=== PATIENT | male | born 1990 | race African-American/Black ===

== ENCOUNTER 2020-06-01 21:27 | Inpatient (IN) | payer OTHER, SELFPAY ==
[~2020-06-01] VITALS: Ht 175.3 cm; Wt 74.8 kg
[2020-06-01 21:29] VITALS: BP 142/90
[2020-06-01 21:32] VITALS: BP 135/69
--- NOTE | 2020-06-01 21:35 | NUR ---
TO LOBBY AMBULATORY
--- NOTE | 2020-06-01 22:12 | NUR ---
Pt ambulated to ER Bed # 12 w/ steady gait.
--- NOTE | 2020-06-01 22:15 | NUR ---
29 YR OLD MALE FOUND IN SEMI-FOWLERS IN BED. PT IS AOX4. PT STATES ABD PAIN 10/10 WITH NAUSEA AND STATED VOMITED BLOOD BEFORE ARRIVAL. PT STATES DIZZINESS AND SLIGHT BLURRY VISION. PT STATED INHALING ("HUFFING") AN AEROSOL CALLED "NEXT" PRIOR TO EMS ARRIVAL. PT DENIES OTHER DRUG AND ALCOHOL USE. ABD IS FLAT AND SOFT AND NORMAL BOWEL SOUNDS HEARD IN ALL QUADRANTS. LUNG SOUNDS CLEAR BILATERALLY. EQUAL RISE AND FALL UPON RESPIRATIONS. PT HAS SLIGHT ABRASION TO FOREHEAD. PT DENIES OTHER MEDICAL COMPLAINTS. BED LOCKED IN LOWEST POSITION WITH 2 SIDE RAILS UP FOR SAFETY AND CALL LIGHT WITHIN REACH. WILL CONTINUE TO MONITOR. HISTORY- NONE ALLERGIES- NONE
--- NOTE | 2020-06-01 22:22 | NUR ---
SCRIBING MACHINE OPERATOR AT BEDSIDE.
--- NOTE | 2020-06-01 22:30 | NUR ---
EKG PERFORMED AT BEDSIDE. EKG READS SINUS RHYTHM @ 96
--- NOTE | 2020-06-01 22:41 | NUR ---
Pt c/o of nausea and has had x2 episodes of vomitting. ERMD made aware.
[2020-06-01] MEDS ORDERED: ONDANSETRON 4 MG/2 ML VIAL IVP ONE (22:45)
[2020-06-01 22:48] LABS: BASOPHILS % (AUTO) 0.2 % (0.0-2.0); HEMATOCRIT 42.8 % (36-52); HEMOGLOBIN 14.8 g/dL (12.0-18.0); LYMPHOCYTES # (AUTO) 0.4 K/uL (2.0-11.5); LYMPHOCYTES % (AUTO) 2.1 % (20.5-51.1); MEAN CORPUSCULAR HEMOGLOBIN 31 pg (27-31); MEAN CORPUSCULAR HGB CONC 35 g/dL (33-37); MEAN CORPUSCULAR VOLUME 89.1 fL (80-94); MONOCYTES # (AUTO) 0.5 K/uL (0.8-1.0); MONOCYTES % (AUTO) 2.8 % (1.7-9.3); NEUTROPHILS # (AUTO) 16.1 K/uL (1.8-7.7); NEUTROPHILS % (AUTO) 94.9 % (42.2-75.2); PLATELET COUNT (AUTO) 325 K/uL (140-450); RED BLOOD CELL COUNT(AUTO) 4.81 MIL/uL (4.20-6.10); RED CELL DISTRIBUTION WIDTH 13.4 % (11.6-13.7)
--- NOTE | 2020-06-01 22:56 | NUR ---
PT TAKEN TO CT
[2020-06-01 23:07] LABS: ALBUMIN 4.8 g/dL (3.4-5.0); ANION GAP 21.5 (8-16); ASPARTATE AMINOTRANSFERASE 42 U/L (15-37); CARBON DIOXIDE 19.5 mmol/L (21-32); CHLORIDE 99 mmol/L (98-107); CREATININE 1.8 mg/dL (0.6-1.3); GFR ARICAN-AMERICAN 58 mL/min (>90); GLUCOSE 140 mg/dL (74-106); SODIUM SERUM 136 mmol/L (136-145); TOTAL BILIRUBIN 0.6 mg/dL (0.0-1.0); UREA NITROGEN, BLOOD 32 mg/dL (7-18)
--- NOTE | 2020-06-01 23:11 | NUR ---
PT RETURN FROM CT
[2020-06-01 23:12] LABS: SALICYLATE < 2.8 mg/dL (2.8-20.0)
[2020-06-01 23:13] LABS: ACETAMINOPHEN < 0.5 ug/ml (10-30)
--- NOTE | 2020-06-01 23:15 | NUR ---
ERMD AT BEDSIDE FOR MEDICAL EVALUATION.
[2020-06-01] MEDS ORDERED: NACL 0.9% 1,000 ML IV ONE (23:20)
[2020-06-01] MEDS ORDERED: PANTOPRAZOLE 40 MG INJ VIAL IVP ONE (23:25)
--- NOTE | 2020-06-01 23:28 | NUR ---
urine sample collected and handed to lab.
[2020-06-01 23:45] LABS: APPEARANCE,URINE CLEAR (CLEAR); BILIRUBIN,URINE NEGATIVE (NEGATIVE); BLOOD, URINE 2+ (NEGATIVE); COLOR,URINE YELLOW (YELLOW); LEUKOCYTE ESTERASE ,URINE TRACE (NEGATIVE); NITRITE, URINE NEGATIVE (NEGATIVE); PH,URINE 5.5 (5.0-9.0); UGLUCOSE NEGATIVE (NEGATIVE)
[2020-06-01 23:54] LABS: RBC,URINE 0-5 /HPF (0-5)
[2020-06-01 23:55] LABS: WBC,URINE 16-25 (MOD) /HPF (0-5)
[2020-06-01 23:57] LABS: BARBITURATE, URINE NEGATIVE ng/ml (NEG <=200); BENZODIAZEPINE, URINE NEGATIVE ng/mL (NEG <=200); CANNABINOID, URINE POSITIVE ng/mL (NEG <=50); COCAINE, URINE NEGATIVE ng/mL (NEG <=300); OPIATE, URINE NEGATIVE ng/mL (NEG <=2000); PHENCYCLIDINE SCREEN,URINE NEGATIVE ng/mL (NEG <=25)
[2020-06-02] MEDS ORDERED: LORazepam 2 MG/ML VIAL IVP ONE
[2020-06-02] MEDS ORDERED: ENOXAPARIN 40 MG/0.4 ML SYR SUBQ ONE
[2020-06-02] MEDS ORDERED: LEVOFLOXACIN 500 MG/D5W PREMIX 100 ML IV ONE (00:05)
--- NOTE | 2020-06-02 00:15 | NUR ---
ALISE SWAB COLLECTED AND WALKED TO LAB.
--- NOTE | 2020-06-02 00:15 | NUR ---
SHIRAZ ALISE SWAB COLLECTED AND WALKED TO LAB.
--- NOTE | 2020-06-02 00:16 | NUR ---
EKG PERFORMED AT BEDSIDE. EKG READS SINUS RHYTHM @ 90
--- NOTE | 2020-06-02 00:31 | NUR ---
JAMES MADE AWARE OF PT CURRENT BP 53/26.
--- NOTE | 2020-06-02 00:33 | NUR ---
PER JAMES AGEE , ADMINISTER NS 1L BOLUS FOR HYPOTENSION AT THIS TIME.
[2020-06-02] MEDS ORDERED: ACETAMINOPHEN 325 MG TAB PO PRN (00:35)
[2020-06-02] MEDS ORDERED: MAGNESIUM OXIDE 400 MG TAB PO PRN (00:35)
[2020-06-02] MEDS ORDERED: NACL 0.9% 1,000 ML IV ONE (00:35)
[2020-06-02] MEDS ORDERED: POTASSIUM CHLORIDE 10 MEQ TABER PO PRN (00:35)
[2020-06-02] MEDS ORDERED: KCL 20 MEQ/WATER INJ PREMIX 200 ML IV PRN (00:35)
[2020-06-02] MEDS ORDERED: MAG SULF 2000 MG/WATER PREMIX 50 ML IV PRN (00:35)
--- NOTE | 2020-06-02 00:40 | NUR ---
PULLED 3ML BLOOD FROM 18G IV FOR PT/PTT LAB COLLECTION.
[2020-06-02] MEDS ORDERED: LORazepam 2 MG/ML VIAL IVP PRN (00:45)
[2020-06-02 01:03] LABS: PROTHROMBIN TIME 11.9 secs (10.8-13.4)
--- NOTE | 2020-06-02 01:11 | NUR ---
Patient will be admitted to care of DR GARCIAS. Admited to TELEMETRY. Will go to room 102B. Belongings list completed. Report to [facility].
--- NOTE | 2020-06-02 01:11 | NUR ---
CALL [facility] FOR REPORT FOR PT TO BE ADMITTED TO THE FLOOR.
--- NOTE | 2020-06-02 01:49 | NUR ---
[facility] RECEIVING NURSE [facility] AT BEDSIDE.
[2020-06-02] MEDS: NACL 0.9% 1,000 ML IV SCH ×2 (02:00→13:05)
[2020-06-02 04:00] VITALS: BP 136/80
[2020-06-02 06:12] LABS: ALBUMIN 3.6 g/dL (3.4-5.0); ANION GAP 16.8 (8-16); CARBON DIOXIDE 21.2 mmol/L (21-32); CREATININE 1.5 mg/dL (0.6-1.3); MAGNESIUM 2.3 mg/dL (1.8-2.4); TOTAL BILIRUBIN 0.4 mg/dL (0.0-1.0)
--- NOTE | 2020-06-02 07:25 | NUR ---
RECEIVED OM SEARCH CONSULTANT NURSE, PT IS AWAKE AND LYING ONT HE BED WITH SIDE RAILS UP AND CALL LIGHT WITHIN REACH, IV LINES NOTED ON THE LEFT UA G. 18 ON SALINE LOCK AND ON THE RFA G. 22 WITH IVF NS INFUSING AT 80ML/HR, INTACT, PT IS ON ROOM AIR AND AOX4 AND NO SIGN OF DISTRESS NOTED, WILL CONTINUE TO MONITOR PT.
--- NOTE | 2020-06-02 07:30 | NUR ---
CLOTH BRUSHING AND SUEDING SUPERVISOR CALLED AND REPORTED CRITICAL TROPONIN LEVEL OF 0.288, WILL INFORM .
[2020-06-02 08:00] VITALS: BP 120/69
--- NOTE | 2020-06-02 08:53 | NUR ---
PATIENT HAS BEEN SCREENED AND CATEGORIZED LOW NUTRITION RISK. PATIENT WILL BE SEEN WITHIN 7 DAYS OF ADMISSION. 06/08/[address]
[2020-06-02] MEDS: ENOXAPARIN 40 MG/0.4 ML SYR SUBQ SCH (09:09)
[2020-06-02] MEDS: ONDANSETRON 4 MG/2 ML VIAL IVP PRN ×3 (09:11→19:46)
--- NOTE | 2020-06-02 09:11 | NUR ---
PT WAS GIVEN THE SCHEDULED AM MEDICATION INCLUDING AN ANTI NAUSEA MED, PARAMETER CHECKED AND WILL MONITOR PT.
[2020-06-02 12:00] VITALS: BP 131/68
--- NOTE | 2020-06-02 12:40 | NUR ---
PT IS RESTING ON THE BED NOW, NO SIGN OF DISTRESS NOTED.
--- NOTE | 2020-06-02 12:55 | NUR ---
SOCIAL WORK NOTE: Patient's Orientation Person Situation Place Time Information Provided By PATIENT Comments SW MET WITH PATIENT AT BEDSIDE TO COMPLETE ASSESSMENT. Real Estate Utilization Officer, Realtionship and Phone Number N/A Healthcare Power of Lime Sludge Mixer No Does Patient Have a POLST No Identifying Problems No Social Work Triggers Is A Social Work Consult Needed No Mandate Report Filed No Explanation Of Identifying Problems PATIENT IS A 29-YEAR-OLD MALE ADMITTED FOR ABNORMAL TROPONIN. PATIENT HAS NO REPORTED PMHX. PATIENT STATED THAT HE USES SUBSTANCE ABUSE (AEROSOL CAN). PATIENT ACCEPTED SUBSTANCE ABUSE RESOURCES. Admitted From Home Pre-Admission Level Of Functioning Status Independent/Ambulatory Prior Resources/Services Used In Last 12 Months No Prior Resources Used Prior DME No Prior DME Used Dialysis Comments N/A Living Situation Lives With Family Lives Alone Patient Had Caregiver No Home Support No Caregiver Issues Financial Issues No Known Financial Issue Referral To The Financial Counselor Needed No Factors/Needs No D/C Needs Identified Drug/Alcohol Treatment Pt/Rep Participated In Discharge Plan Yes Patient/Family Agress With Discharge Plan Yes Discharge Plan Comments TENTATIVE DISCHARGE PLAN IS FOR PATIENT TO RETURN HOME. DC Plan Status Initiated
--- NOTE | 2020-06-02 13:42 | NUR ---
DISCHARGE PLANNING: THIS IS A 29 Y/O MALE PATIENT FROM HOME, WHO CAME IN DUE TO VOMITING BLOOD AND STOMACH PAIN. NO SIGNIFICANT HISTORY. INITIAL DIAGNOSIS OF ABNORMAL TROPONIN, ACUTE KIDNEY INFECTION AND SUBSTANCE ABUSE. CURRENT LABS INCLUDE WBC 17.0, H/H 14.8/42.8, NA/K 135/4.0, BUN/CREA 28/1.5, TROP 0.288. UDS POSITIVE FOR CANNABINOIDS. RAPID COVID TEST NEGATIVE. ON LOVENOX. HEAD CT NORMAL. CXR NEGATIVE. CARDIO CONSULT IN PLACE. ON ROOM AIR, O2 SAT 100%. DC PLAN BACK TO HOME ONCE STABLE.
--- NOTE | 2020-06-02 14:25 | NUR ---
PT WAS GIVEN ANTI -NAUSEA MEDICATION. WILL MONITOR PT.
--- NOTE | 2020-06-02 14:28 | NUR ---
FEDERAL JAVA DEVELOPER ARIS CALLED AND INFORMED THE PT'S CRITICAL TROPONIN OF 0.198, WILL INFORM .
[2020-06-02 16:00] VITALS: BP 116/74
--- NOTE | 2020-06-02 19:25 | NUR ---
ED PT TO [facility] SHIFT NURSE, GLENDA, FOR CONTINUITY OF CARE.
--- NOTE | 2020-06-02 19:30 | NUR ---
RECEIVED BEDSIDE REPORT FROM DAY SHIFT NURSE. PATIENT IS AWAKE, ALERT, AND COOPERATIVE. RESPIRATION EVEN UNLABORED ON ROOM AIR. NO DISTRESS NOTED. SKIN IS WARM AND DRY. IV PATENT AND INTACT. PLAN OF CARE WAS DISCUSSED. ALL SAFETY MEASURES IN PLACE. BED IS AT LOW POSITION. CALL LIGHT WITHIN REACH. WILL CONTINUE TO MONITOR.
--- NOTE | 2020-06-02 19:50 | NUR ---
PATIENT COMPLAINED OF FEELING NAUSEOUS. PRN ANTI-EMETIC MED GIVEN PER ORDER. WILL CONTINUE TO MONITOR
[2020-06-02 20:00] VITALS: BP 127/95
[2020-06-02] MEDS ORDERED: oxyCODONE/APAP 5/325 MG 1 TAB TAB PO PRN (21:25)
[2020-06-02] MEDS: HYDROcodone/APAP 5/325 MG 1 TAB TAB PO PRN (21:37)
--- NOTE | 2020-06-02 21:37 | NUR ---
PATIENT COMPLAINED OF ABD PAIN 6/10. PRN PAIN MED ADMINISTER PER ORDER. WILL CONTINUE TO MONITOR
--- NOTE | 2020-06-02 22:37 | NUR ---
REASSESSED PATIENT PAIN. PATIENT VERBALIZES REDUCED PAIN. WILL CONTINUE TO MONITOR.
[2020-06-03] VITALS: BP 118/72
--- NOTE | 2020-06-03 00:54 | NUR ---
MADE ROUNDS. PATIENT SLEEPING RESPIRATION EVEN UNLABORED ON ROOM AIR. NO DISTRESS NOTED. WILL CONTINUE TO MONITOR
[2020-06-03] MEDS: NACL 0.9% 1,000 ML IV SCH ×2 (01:57→13:16)
--- NOTE | 2020-06-03 02:30 | NUR ---
MADE ROUNDS. PATIENT SLEEPING RESPIRATION EVEN UNLABORED ON ROOM AIR. NO DISTRESS NOTED. WILL CONTINUE TO MONITOR
[2020-06-03] MEDS: ONDANSETRON 4 MG/2 ML VIAL IVP PRN ×4 (03:06→23:32)
--- NOTE | 2020-06-03 03:06 | NUR ---
PATIENT COMPLAINED OF FEELING NAUSEOUS. PRN ANTI-EMETIC MED ADMINISTER PER ORDER. WILL CONTINUE TO MONITOR.
[2020-06-03] MEDS: HYDROcodone/APAP 5/325 MG 1 TAB TAB PO PRN ×4 (03:50→23:33)
--- NOTE | 2020-06-03 03:52 | NUR ---
PATIENT COMPLAINED OF ABDOMINAL PAIN /. PRN PAIN MED GIVEN PER ORDER. WILL CONTINUE TO MONITOR
[2020-06-03 04:00] VITALS: BP 123/87
--- NOTE | 2020-06-03 04:52 | NUR ---
REASSESSED PATIENT PAIN. PATIENT VERBALIZES REDUCED PAIN. WILL CONTINUE TO MONITOR.
[2020-06-03 06:12] LABS: BASOPHILS % (AUTO) 0.1 % (0.0-2.0); EOSINOPHILS # (AUTO) 0.1 K/uL (0-0.4); EOSINOPHILS % (AUTO) 0.8 % (0.0-4.0); HEMATOCRIT 36.7 % (36-52); HEMOGLOBIN 12.2 g/dL (12.0-18.0); LYMPHOCYTES # (AUTO) 1.4 K/uL (2.0-11.5); LYMPHOCYTES % (AUTO) 20.3 % (20.5-51.1); MEAN CORPUSCULAR HEMOGLOBIN 30 pg (27-31); MEAN CORPUSCULAR HGB CONC 33 g/dL (33-37); MONOCYTES % (AUTO) 14.5 % (1.7-9.3); NEUTROPHILS # (AUTO) 4.6 K/uL (1.8-7.7); NEUTROPHILS % (AUTO) 64.3 % (42.2-75.2); PLATELET COUNT (AUTO) 243 K/uL (140-450); RED BLOOD CELL COUNT(AUTO) 4.04 MIL/uL (4.20-6.10); RED CELL DISTRIBUTION WIDTH 13.3 % (11.6-13.7); WHITE BLOOD COUNT (AUTO) 7.1 K/uL (4.8-10.8)
[2020-06-03 06:48] LABS: ALBUMIN 3.3 g/dL (3.4-5.0); ANION GAP 13.4 (8-16); CARBON DIOXIDE 25.6 mmol/L (21-32); CREATININE 1.3 mg/dL (0.6-1.3); MAGNESIUM 2.3 mg/dL (1.8-2.4); TOTAL BILIRUBIN 0.4 mg/dL (0.0-1.0)
--- NOTE | 2020-06-03 07:35 | NUR ---
RECEIVED PT FROM RECORD CHANGER NURSE, PT IS RESTING IN BED, O ROOM AIR, IV NOTED TO RFA 22G, TELE MONITOR ON, SAFETY AND FALL PRECAUTIONS IN PLACE, WILL CONTINUE TO MONITOR.
--- NOTE | 2020-06-03 07:37 | NUR ---
ENDORSED PATIENT TO DAY SHIFT NURSE FOR CONTINUITY OF CARE.
[2020-06-03 08:00] VITALS: BP 123/73
[2020-06-03] MEDS: PANTOPRAZOLE 40 MG TABEC PO SCH (08:35)
--- NOTE | 2020-06-03 08:36 | NUR ---
SCHEDULED MEDICATION PROTONIX ADMINISTERED, PT STATED VOMITING OVERNIGHT, 3OO ML OUT, PT STATED HE HAD BLOOD IN VOMIT 2 DAYS AGO, WILL HOLD LOVENOX UNTIL MD ORDERS OK TO BEGIN LOVENOX INJECTIONS, EDUCATION PROVIDED, PT VERBALIZED UNDERSTANDING,WILL CONTINUE TO MONITOR.
[2020-06-03] MEDS: ENOXAPARIN 40 MG/0.4 ML SYR SUBQ SCH (09:00)
--- NOTE | 2020-06-03 10:37 | NUR ---
KARINA AND AZAM ADMINISTERED, PT VERBALIZED PAIN TO RUQ 8 OUT OF 10 AND NAUSEA, EDUCATION PROVIDED, PT VERBALIZED UNDERSTANDING, BP 145/82, HR 60, RR 18, 02 100%, WILL CONTINUE TO MONITOR.
[2020-06-03 11:46] LABS: CKMB RELATIVE INDEX 0.1 (0.0-2.5); CREATINE KINASE MB 1.1 ng/mL (0-3.6)
[2020-06-03 12:00] VITALS: BP 145/82
--- NOTE | 2020-06-03 13:19 | NUR ---
PER MD GARCIAS ORDER, ROCK LOVENOX AND BEGIN SCD ORDER.
[2020-06-03 16:00] VITALS: BP 129/82
--- NOTE | 2020-06-03 17:11 | NUR ---
NORCO AND ZOFRAN ADMINISTERED FOR PT, PT VERBALIZED FEELING NAUSEA AND STATED 7 OUT OF 10 PAIN, BP 130/82, HR 60, RR 18, O2 98%, WILL CONTINUE TO MONITOR.
--- NOTE | 2020-06-03 19:10 | NUR ---
RECEIVED BEDSIDE REPORT FROM DAY SHIFT NURSE. PATIENT IS AWAKE, ALERT, AND COOPERATIVE. RESPIRATION EVEN UNLABORED ON ROOM. NO DISTRESS NOTED. SKIN IS WARM AND DRY. IV PATENT AND INTACT. PLAN OF CARE WAS DISCUSSED. ALL SAFETY MEASURES IN PLACE. BED IS AT LOW POSITION. CALL LIGHT WITHIN REACH. WILL CONTINUE TO MONITOR
--- NOTE | 2020-06-03 19:20 | NUR ---
PT ENDORSED TO ACCOUNTING MACHINE MECHANIC NURSE FOR CONTINUITY OF CARE.
[2020-06-03 20:00] VITALS: BP 145/67
--- NOTE | 2020-06-03 23:40 | NUR ---
PATIENT COMPLAINED OF FEELING NAUSEOUS AND ABDOMINAL PAIN. PRN ANTI-EMETIC AND PAIN MEDS GIVEN PER ORDER. WILL CONTINUE TO MONITOR
[2020-06-04] VITALS: BP 135/84
[2020-06-04] MEDS: NACL 0.9% 1,000 ML IV SCH (02:36)
--- NOTE | 2020-06-04 02:36 | NUR ---
MADE ROUNDS. PATIENT SLEEPING RESPIRATION EVEN UNLABORED ON ROOM AIR. NO DISTRESS NOTED. WILL CONTINUE TO MONITOR
[2020-06-04 04:00] VITALS: BP 122/90
[2020-06-04] MEDS: HYDROcodone/APAP 5/325 MG 1 TAB TAB PO PRN (06:17)
[2020-06-04] MEDS: ONDANSETRON 4 MG/2 ML VIAL IVP PRN (06:18)
--- NOTE | 2020-06-04 06:21 | NUR ---
PATIENT WOKE UP FEELING NAUSEATED AND COMPLAINING OF ABD PAIN. PRN PAIN AND ANTI-EMETIC MED GIVEN PER ORDER. WILL CONTINUE TO MONITOR.
[2020-06-04 06:28] LABS: BASOPHILS % (AUTO) 0.4 % (0.0-2.0); EOSINOPHILS # (AUTO) 0.1 K/uL (0-0.4); HEMATOCRIT 38.4 % (36-52); HEMOGLOBIN 12.7 g/dL (12.0-18.0); LYMPHOCYTES # (AUTO) 2.1 K/uL (2.0-11.5); LYMPHOCYTES % (AUTO) 45.1 % (20.5-51.1); MEAN CORPUSCULAR HEMOGLOBIN 30 pg (27-31); MEAN CORPUSCULAR HGB CONC 33 g/dL (33-37); MEAN CORPUSCULAR VOLUME 91.6 fL (80-94); MONOCYTES # (AUTO) 0.5 K/uL (0.8-1.0); MONOCYTES % (AUTO) 10.9 % (1.7-9.3); NEUTROPHILS % (AUTO) 41.6 % (42.2-75.2); PLATELET COUNT (AUTO) 251 K/uL (140-450); RED CELL DISTRIBUTION WIDTH 13.3 % (11.6-13.7); WHITE BLOOD COUNT (AUTO) 4.7 K/uL (4.8-10.8)
--- NOTE | 2020-06-04 07:34 | NUR ---
ENDORSED PATIENT TO DAY SHIFT NURSE FOR CONTINUITY OF CARE
--- NOTE | 2020-06-04 07:35 | NUR ---
RECEIVED REPORT FROM SUPERVISORY IT SPECIALIST NURSE FOR CONTINUITY OF CARE. PATIENT IN STABLE CONDITION.
[2020-06-04 07:47] LABS: ALBUMIN 3.4 g/dL (3.4-5.0); CARBON DIOXIDE 28.6 mmol/L (21-32); CREATININE 1.2 mg/dL (0.6-1.3); POTASSIUM 3.6 mmol/L (3.5-5.1); TOTAL BILIRUBIN 0.3 mg/dL (0.0-1.0)
[2020-06-04 08:00] VITALS: BP 130/94
[2020-06-04] MEDS: PANTOPRAZOLE 40 MG TABEC PO SCH (08:29)
--- NOTE | 2020-06-04 08:29 | NUR ---
SCHEDULED MEDICATIONS DUE GIVEN. WILL CONTINUE TO MONITOR.
[2020-06-04] MEDS ORDERED: ONDA4TAB PO (10:32)
[2020-06-04] MEDS ORDERED: PANT40EC PO (10:32)
--- NOTE | 2020-06-04 11:30 | NUR ---
PATIENT SITTING DOWN IN BED WITH LUNCH TRAY IN FRONT. CONDITION UNCHANGED. WILL CONTINUE TO MONITOR.
[2020-06-04 12:00] VITALS: BP 126/91
--- NOTE | 2020-06-04 12:50 | NUR ---
DISCHARGE INSTRUCTIONS PROVIDED TO PATIENT IN PREFERRED LANGUAGE OF [place]. INSTRUCTIONS ON FOLLOW-UP VISIT WITH PCP, NEW MEDICATION REGIMEN, DIET REGIMEN, AND AVOIDANCE OF SUBSTANCE ABUSE PROVIDED. ANSWERED ALL OF PATIENT'S QUESTIONS REGARDING DISCHARGE. IV SITE REMOVED WITH MINIMAL BLOOD AND LUMEN COMPLETELY INTACT. ID BANDS REMOVED. BUS PASS GIVEN TO PATIENT PATIENT HAS NO FAMILY MEMBERS THAT LIVE NEARBY AND WAS BROUGHT TO HOSPITAL BY AMBULANCE. ESCORTED PATIENT DOWN TO LOBBY VIA [facility]. PATIENT DISCHARGED TO HOME AT THIS TIME IN STABLE CONDITION.
== END 2020-06-04 12:50 | disposition home or self-care (01) | DRG 816 ==
LOC: MED 21:27 → MTU 06-02 00:44 → MMU 06-02 01:09
PROVIDERS: ADMIT Internal Medicine; ATTEND Internal Medicine
DX: T65.91XA Toxic effect of unspecified substance, accidental (unintentional), initial encounter (principal); K29.01 Acute gastritis with bleeding; N17.9 Acute kidney failure, unspecified; M62.82 Rhabdomyolysis; Z20.822 Contact with and (suspected) exposure to COVID-19; E86.0 Dehydration; I95.9 Hypotension, unspecified; R73.9 Hyperglycemia, unspecified; F17.210 Nicotine dependence, cigarettes, uncomplicated; I21.A1 Myocardial infarction type 2; F12.10 Cannabis abuse, uncomplicated; F10.10 Alcohol abuse, uncomplicated; Y90.0 Blood alcohol level of less than 20 mg/100 ml; Z71.51 Drug abuse counseling and surveillance of drug abuser; Z71.6 Tobacco abuse counseling; Z71.41 Alcohol abuse counseling and surveillance of alcoholic
CPT/HCPCS: 36415; 70450; 71045; 80053; 80305; 81001; 82550; 82553; 83735; 84484; 85025; 85610; 85730; 87081; 87086; 93005; 96361; 96365; 96372; 96375; 99285; C9113; G0480; G0482; J1650; J1956; J2060; J2405; J7030